=== PATIENT | female | born 1980 | race Caucasian/White ===

== ENCOUNTER 2016-11-23 08:40 | Outpatient (CLI) | payer OTHER ==
[2016-11-23 08:55] VITALS: BP 109/67
[2016-11-23] MEDS ORDERED: PREN1TAB86 PO (08:56)
[2016-11-23] MEDS ORDERED: FOLI0.4T2 PO (08:56)
[2016-11-23] MEDS ORDERED: GLYC1SUP77 RC (08:56)
[2016-11-23 09:15] VITALS: BP 113/74
[2016-11-23 09:17] VITALS: BP 112/66
--- NOTE | 2016-11-26 11:43 | Physician Query-Final Dx ---
WES KRISHNA 11/26/16 1143: Clinic Account Progress/Dx Physician Query: Please give diagnosis Date of Service Nov 23, 2016 at 08:40 SABRA SPRINGER MD 11/29/16 0912: Clinic Account Progress/Dx DIAGNOSIS: Diagnosis decreased movement WES KRISHNA Nov 26, 2016 11:43 SABRA SPRINGER MD Nov 29, 2016 09:12
== END 2016-11-23 09:40 | disposition home or self-care (01) ==
LOC: WSo 08:40 → LDRP 08:40 → UNDOADMOB 08:40 → LDRP 08:40 → UNDODISOB 09:40 → WSo 09:40 → EDSTATUS 11-24 14:30
PROVIDERS: ATTEND Obstetrics & Gynecology
DX: O36.8120 Decreased fetal movements, second trimester, not applicable or unspecified (principal); Z3A.25 25 weeks gestation of pregnancy
CPT/HCPCS: 99212

== ENCOUNTER 2017-01-29 14:28 | Outpatient (CLI) | payer OTHER ==
[~2017-01-29] VITALS: Ht 162.6 cm; Wt 103.1 kg
[~2017-01-29 14:28] MED LIST: FOLI0.4T2 PO; GLYC1SUP77 RC; PREN1TAB86 PO
[2017-01-29 14:53] VITALS: BP 123/61
[2017-01-29 20:01] VITALS: BP 118/61
--- NOTE | 2017-01-31 14:12 | Physician Query-Final Dx ---
WES KRISHNA 01/31/17 1412: Clinic Account Progress/Dx Physician Query: Please give diagnosis Date of Service Jan 29, 2017 at 14:28 SABAR SPRINGER MD 02/01/17 0745: Clinic Account Progress/Dx DIAGNOSIS: Diagnosis fecal impaction WES KRISHNA Jan 31, 2017 14:12 SABRA SPRINGER MD Feb 01, 2017 07:45
== END 2017-01-29 15:25 | disposition home or self-care (01) ==
LOC: WSo 14:28 → LDRP 14:29 → WSo 15:25
PROVIDERS: ATTEND Obstetrics & Gynecology
DX: O99.613 Diseases of the digestive system complicating pregnancy, third trimester (principal); K56.41 Fecal impaction; Z3A.34 34 weeks gestation of pregnancy
CPT/HCPCS: 99214

== ENCOUNTER 2017-01-29 19:39 | Outpatient (CLI) | payer OTHER ==
[2017-01-29 20:55] VITALS: BP 116/66
--- NOTE | 2017-02-01 09:49 | Physician Query-Final Dx ---
WES KRISHNA 02/01/17 0949: Clinic Account Progress/Dx Physician Query: Please give diagnosis Date of Service Jan 29, 2017 at 19:39 SABRA SPRINGER MD 02/02/17 0719: Clinic Account Progress/Dx DIAGNOSIS: Diagnosis fecal impaction / constipation WES KRISHNA Feb 01, 2017 09:49 SABRA SPRINGER MD Feb 02, 2017 07:19
[2017-03-04] MEDS ORDERED: OXYC-465 PO (12:27)
[2017-03-04] MEDS ORDERED: DOCU100C37 PO (12:27)
[2017-03-04] MEDS ORDERED: IBUP-1780 PO (12:27)
== END 2017-01-29 22:45 | disposition home or self-care (01) ==
LOC: WSo 19:39 → LDRP 19:39 → WSo 19:40 → LDRP 20:30 → WSo 20:30 → LDRP 20:40 → 4TH 20:40 → UNDOADMOB 20:40 → WSo 20:40 → 4TH 20:40 → UNDODISOB 22:45 → WSo 22:45
PROVIDERS: ATTEND Obstetrics & Gynecology
DX: O99.613 Diseases of the digestive system complicating pregnancy, third trimester (principal); K56.41 Fecal impaction; Z3A.34 34 weeks gestation of pregnancy
CPT/HCPCS: 99212

== ENCOUNTER 2017-02-16 13:30 | Outpatient (CLI) | payer OTHER ==
[~2017-02-16] VITALS: Ht 162.6 cm; Wt 104.3 kg
--- NOTE | 2017-02-17 08:56 | Physician Query-Final Dx ---
WES KRISHNA 02/17/17 0856: Clinic Account Progress/Dx Physician Query: Please give diagnosis Date of Service Feb 16, 2017 at 13:30 SABRA SPRINGER MD 02/17/17 1817: Clinic Account Progress/Dx DIAGNOSIS: Diagnosis false labor WES KRISHNA Feb 17, 2017 08:56 SABRA SPRINGER MD Feb 17, 2017 18:17
== END 2017-02-16 14:40 | disposition home or self-care (01) ==
LOC: LDRP 13:30 → WSo 13:30
PROVIDERS: ATTEND Obstetrics & Gynecology
DX: O47.9 False labor, unspecified (principal)
CPT/HCPCS: 99212

== ENCOUNTER 2017-03-03 01:23 | Inpatient (IN) | payer OTHER ==
[~2017-03-03] VITALS: Ht 162.6 cm; Wt 105.5 kg
[2017-03-03] VITALS (72 sets, daily range): BP systolic 91–223; BP diastolic 47–176
[2017-03-03] MEDS ORDERED: AMPICILLIN INJECTION 2,000 MG in NS (IVPB) 50 ML IV SCH (02:02)
[2017-03-03] MEDS ORDERED: AMPICILLIN 2000 MG INJECTION (IM/IV) ONE (02:09)
[2017-03-03] MEDS ORDERED: NS (IVPB) 50 ML ONE (02:10)
[2017-03-03] MEDS: D5 LR IV SOLUTION 1,000 ML IV SCH ×2 (02:23→10:21)
[2017-03-03 02:26] LABS: BASOPHILS % (AUTO) 0 % (0-10); EOSINOPHILS # (AUTO) 0.1 10^3/uL (0.0-0.3); EOSINOPHILS % (AUTO) 1 % (0-10); LYMPHOCYTES # (AUTO) 2.6 X 10^3 (1.0-4.0); LYMPHOCYTES % (AUTO) 28 % (12-44); MEAN CORPUSCULAR HEMOGLOBIN 30 PG (25-34); MEAN CORPUSCULAR HGB CONC 34 G/DL (32-36); MEAN CORPUSCULAR VOLUME 88 FL (80-99); MEAN PLATELET VOLUME 10.6 FL (7.4-10.4); MONOCYTES # (AUTO) 0.5 X 10^3 (0.0-1.0); MONOCYTES % (AUTO) 6 % (0-12); NEUTROPHILS # (AUTO) 5.8 X 10^3 (1.8-7.8); NEUTROPHILS % (AUTO) 65 % (42-75); PLATELET COUNT 240 10^3/uL (130-400); RED BLOOD COUNT 4.29 10^6/uL (4.35-5.85); WHITE BLOOD COUNT 9.1 10^3/uL (4.3-11.0)
[2017-03-03] MEDS ORDERED: CALCIUM CARBONATE 500 MG (TUMS) TAB.CHEW ONE (05:32)
[2017-03-03] MEDS ORDERED: CALCIUM CARBONATE 500 MG (TUMS) TAB.CHEW PO ONE (05:45)
[2017-03-03] MEDS ORDERED: CATHETER FLUSH 10 ML SYR IV SCH (06:00)
[2017-03-03] MEDS ORDERED: CITRIC ACID/SOB CIT (BICITRA) 30 ML UDC PO ONE (06:15)
[2017-03-03] MEDS: AMPICILLIN INJECTION 1,000 MG in NS (IVPB) 50 ML IV SCH ×4 (06:34→18:54)
[2017-03-03] MEDS ORDERED: OXYTOCIN/NORMAL SALINE 500 ML IV SCH ×2 (07:28→21:04)
[2017-03-03] MEDS ORDERED: INFLUENZA TRIvalent 2017-2018 0.5 ML/45 MCG SYR IM ONE (07:30)
[2017-03-03] MEDS ORDERED: CITRIC ACID/SOB CIT (BICITRA) 30 ML UDC PO PRN (07:30)
--- NOTE | 2017-03-03 07:39 | History & Physical ---
History and Physical Date Seen by Provider: Mar 03, 2017 Time Seen by Provider: 07:32 this patient is a 31-year-old G1 [place] female with an EDC of [id number] putting her past 39 weeks on presentation. She reports a large gush of clear fluid and was leaking continuously clear fluid on presentation. She complained of spontaneous rupture membranes at 1 a.m. Her has been uncomplicated. She did have a GBS positive culture after 35 weeks gestation. She denies bleeding. She does feel baby moving. She is having somewhat irregular contractions on presentation, contractions now have spaced out to 6 or 8/hour. patient did develop fairly significant pubic/pelvic pain that resolved with initially voiding. Allergies are none medications are Unisom and B6 vitamins and Anusol Past medical history, past surgical history, family history, and social histories are per the antepartum record HEENT exam is normal Neck is supple no lymphadenopathy no thyromegaly Abdomen is gravid soft nontender nondistended Extremities show clubbing cyanosis. There is no Homans sign. Exam per the L&D nurse shows a cervix is fingertip thick and somewhat anterior currently. The presenting part is the vertex. There is obvious clear fluid leakage monitor shows a normal heart rate pattern with occasional contractions there are frequent accelerations and no decelerations Laboratory Tests 03/03/17 02:15 assessment and plan term at 39+ weeks' gestation with PROM. The patient has requested an epidural. That will be placed and then the labor will be augmented with Pitocin. Patient's GBS culture was positive and she has been started on ampicillin and we'll continue until she delivers. Patient understands there is some potential for delivery.expectation is for vaginal delivery. 39 weeks gestation with PROM Allergies and Home Medications Allergies Coded Allergies: No Known Drug Allergies (Unverified , 03/03/17) Home Medications Folic Acid 0.4 Mg Tablet, MG PO DAILY, (Reported) Vit W-Ca,Fe,FA(<1 mg) 1 Each Tablet, 1 TAB PO DAILY, (Reported) Clinical Quality Measures DVT/VTE Risk/Contraindication: Risk Factor Score Per Nursin RFS Level Per Nursing on Admit: 1=Low/No VTE PPX SABRA SPRINGER MD Mar 03, 2017 7:39 am
[2017-03-03] MEDS ORDERED: SUFENTA 0.6MCG/ML BUPIVA 0.125 100 ML ONE (07:44)
[2017-03-03] MEDS: FAMOTIDINE 20MG/2ML IV (PEPCID) IVP SCH ×2 (07:45→21:00)
[2017-03-03] MEDS ORDERED: BUPIVACAINE 0.25% 30 ML (SENSORCAINE) VIAL ONE ×2 (08:05→20:55)
[2017-03-03] MEDS: EPIDURAL (SUFENTA 0.6MCG/ML BUPIVA 0.125%) 100 ML BAG EPI SCH ×2 (08:50→18:58)
[2017-03-03] MEDS ORDERED: LACTATED RINGERS 1,000 ML IV ONE (08:55)
[2017-03-03] MEDS ORDERED: NALOXONE 0.4 MG/ML 1 ML (NARCAN) VIAL IV PRN (09:00)
[2017-03-03] MEDS: ONDANSETRON 4 MG/2 ML (SDV) Z0FRAN IV PRN ×2 (09:22→14:40)
[2017-03-03] MEDS ORDERED: ACETAMINOPHEN 500 MG TAB (TYLENOL) ONE (17:44)
[2017-03-03] MEDS ORDERED: ACETAMINOPHEN 500 MG TAB (TYLENOL) PO PRN (18:00)
[2017-03-03] MEDS ORDERED: ceFAZolin 2 GM/50 ML NS 50 ML ONE (19:38)
[2017-03-03] MEDS ORDERED: metroNIDAZOLE 500MG/100ML IVPB 100 ML ONE (19:38)
[2017-03-03] MEDS ORDERED: METOCLOPRAMIDE INJ 10 MG/2 ML (REGLAN) ONE (19:38)
[2017-03-03] MEDS ORDERED: LIDOCAINE PF 2% 5 ML (XYLOCAINE) VIAL ONE (20:55)
[2017-03-03] MEDS ORDERED: fentaNYL INJECTION 100 MCG/2 ML AMP ONE (21:00)
--- NOTE | 2017-03-03 21:08 | Progress Note-Post Operative ---
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 Pre-Operative Diagnosis failure to progress in labor Post-Operative Diagnosis same with CPD Procedure & Operative Findings Date of Procedure 03/03/17 Procedure Performed/Findings primary low transverse delivery Anesthesia Type epidural Estimated Blood Loss Estimated blood loss (mL): 250cc Specimens/Packing Specimens Removed placenta and umbilical cord Packing: none SABRA SPRINGER MD Mar 03, 2017 21:08
--- NOTE | 2017-03-03 21:09 | Progress Note-Pre Operative ---
Pre-Operative Progress Note H&P Reviewed The H&P was reviewed, patient examined and no changes noted. Date Seen by Provider: Mar 03, 2017 Time Seen by Provider: 21:08 Date H&P Reviewed: Mar 03, 2017 Time H&P Reviewed: 21:08 Pre-Operative Diagnosis: term in labor with failure to progress and prolonged ROM SABRA SPRINGER MD Mar 03, 2017 21:09
[2017-03-03] MEDS ORDERED: D5 LR IV SOLUTION 1,000 ML IV ONE (21:12)
[2017-03-03] MEDS ORDERED: PROMETHAZINE INJ 25 MG/ML (PHENERGAN) AMP IM PRN (21:15)
[2017-03-03] MEDS ORDERED: MEPERIDINE (DEMEROL) INJ 100 MG/ML IM PRN (21:15)
[2017-03-03] MEDS ORDERED: TETANUS,DIPTH,PERTUSS P/F (BOOSTRIX) 0.5 ML VIAL IM ONE (21:15)
[2017-03-03] MEDS ORDERED: ceFAZolin INJECTION 2,000 MG in NS (IVPB) 50 ML IV ONE (21:15)
[2017-03-03] MEDS ORDERED: MEASLES,MUMPS,RUBELLA 1 EA INJ SC ONE (21:15)
[2017-03-03] MEDS ORDERED: metroNIDAZOLE 500MG/100ML IVPB 100 ML IV ONE (21:15)
[2017-03-03] MEDS ORDERED: morphine INJ 10 MG/ML 1ML (SYR OR VIAL) IVP PRN (22:00)
[2017-03-03] MEDS ORDERED: ONDANSETRON 4 MG/2 ML (SDV) Z0FRAN IVP PRN (22:00)
[2017-03-03] MEDS ORDERED: MEPERIDINE (DEMEROL) INJ 50 MG/ML IVP PRN (22:00)
[2017-03-04] MEDS: oxyCODONE/APAP 10/325MG (PERCOCET 10) TABLET PO PRN ×4 (00:43→20:52)
[2017-03-04] MEDS ORDERED: KETOROLAC 30 MG/ML VIAL ONE (04:28)
[2017-03-04] MEDS: KETOROLAC 30 MG/ML VIAL IVP SCH ×2 (04:40→10:59)
[2017-03-04 04:45] VITALS: BP 109/66
--- NOTE | 2017-03-04 06:55 | Progress Note-Standard ---
Standard Progress Note Progress Notes/Assess & Plan Date Seen by Provider: Mar 04, 2017 Time Seen by Provider: 06:54 Progress/Assessment & Plan this patient is without complaint. She is ambulating, voiding, tolerating by mouth, has good pain control. Patient denies chest pain, denies shortness of breath, denies nausea vomiting, patient denies headache as well. Vital Signs Date Time Temp Pulse Resp B/P (MAP) Pulse Ox O2 Delivery O2 Flow Rate FiO2 03/04/17 04:45 99.1 79 18 109/66 97 03/04/17 00:15 Room Air 03/03/17 23:30 98.2 69 18 117/69 97 03/03/17 21:20 62 18 105/53 03/03/17 21:00 18 03/03/17 20:45 62 18 123/68 03/03/17 20:30 64 18 114/58 03/03/17 20:15 63 18 111/56 03/03/17 20:00 97.8 65 18 105/52 03/03/17 19:45 65 18 96/52 03/03/17 19:30 67 18 110/51 03/03/17 19:15 65 18 117/49 03/03/17 17:05 79 20 118/53 Room Air 03/03/17 16:50 67 20 106/53 Room Air 03/03/17 16:35 67 20 113/54 Room Air 03/03/17 16:20 67 20 100/49 Room Air 03/03/17 16:05 64 20 98/47 Room Air 03/03/17 15:50 62 20 100/49 Room Air 03/03/17 15:35 62 20 94/49 Room Air 03/03/17 15:20 61 20 95/54 Room Air 03/03/17 15:05 98.6 73 20 112/67 Room Air 03/03/17 14:50 74 20 117/55 Room Air 03/03/17 14:34 69 20 123/58 Room Air 03/03/17 14:20 67 20 105/56 Room Air 03/03/17 14:05 61 20 110/55 Room Air 03/03/17 13:49 63 20 105/57 Room Air 03/03/17 13:35 60 20 102/53 Room Air 03/03/17 13:05 62 20 107/57 Room Air 03/03/17 12:50 62 20 107/52 Room Air 03/03/17 12:35 98.8 55 20 95/50 Room Air 03/03/17 12:20 53 20 110/53 Room Air 03/03/17 12:04 59 20 105/52 Room Air 03/03/17 11:49 55 20 95/55 Room Air 03/03/17 11:34 58 20 93/55 Room Air 03/03/17 11:25 59 20 103/51 Room Air 03/03/17 11:20 61 20 223/176 Room Air 03/03/17 10:49 63 20 101/54 Room Air 03/03/17 10:33 59 20 98/56 Room Air 03/03/17 10:22 62 20 102/53 Room Air 03/03/17 10:20 98.5 58 20 96/55 Room Air 03/03/17 10:01 58 20 96/55 Room Air 03/03/17 09:56 63 20 95/51 Room Air 03/03/17 09:54 62 20 97/51 Room Air 03/03/17 09:48 63 20 100/51 Room Air 03/03/17 09:41 73 20 101/48 100 Room Air 03/03/17 09:37 71 20 108/53 100 Room Air 03/03/17 09:33 71 20 112/50 100 Room Air 03/03/17 09:28 68 20 125/58 Room Air 03/03/17 09:24 75 20 117/57 99 Room Air 03/03/17 09:21 76 20 109/59 99 Room Air 03/03/17 09:17 78 20 121/58 99 Room Air 03/03/17 09:12 74 20 122/58 99 Room Air 03/03/17 09:07 80 20 119/57 99 Room Air 03/03/17 09:04 80 20 118/56 99 Room Air 03/03/17 08:59 84 20 115/57 99 Room Air 03/03/17 08:52 77 20 123/56 99 Room Air 03/03/17 08:47 81 20 128/89 100 Room Air 03/03/17 08:43 85 20 132/75 100 Room Air 03/03/17 08:37 97 20 153/80 99 Room Air 03/03/17 08:32 83 20 136/70 100 Room Air 03/03/17 08:27 85 20 138/63 100 Room Air 03/03/17 08:14 61 20 112/56 100 Room Air 03/03/17 07:58 96.9 65 20 111/52 Room Air vital signs are stable. Patient is afebrile. The abdomen is benign. The surgical incision is clean dry and intact. Fundus is firm below the umbilicus and nontender. Extremities show no clubbing or cyanosis. There is no Homans sign. There is some pretibial pitting edema that is normal. Assessment and plan postoperative day number 1 status post primary delivery due to failure to progress in labor/CPD. Patient doing well and will have routine convalescence care today SABRA SPRINGER MD Mar 04, 2017 6:55 am
[2017-03-04] MEDS: DOCUSATE SODIUM 100 MG (COLACE) CAP PO SCH (08:25)
[2017-03-04 09:00] VITALS: BP 117/66
--- NOTE | 2017-03-04 11:14 | OPERATIVE REPORT ---
DATE OF SERVICE: 03/03/2017 PREOPERATIVE DIAGNOSES: Term in labor with failure to progress. POSTOPERATIVE DIAGNOSES: Term in labor with failure to progress with CPD. OPERATIVE PROCEDURE: Primary low transverse delivery of a viable male with Apgars of 9 and 9 at 1 and 5 minutes respectively. Weight is 10 lbs. 3 oz. time was 2142. Cord blood pH was 7.41. OPERATIVE DESCRIPTION: With the patient in the supine position under satisfactory epidural anesthesia, she was prepped and draped in the usual fashion for abdominal surgery. Brooks catheter was placed in the urinary bladder during labor that was left to dependent drainage. A Pfannenstiel incision made through the skin with a scalpel. The patient's abdomen was entered in the usual manner. Bladder retractor placed in position, clean scalpel used to make a 4 cm hysterotomy incision transversally across the lower uterine segment that was extended by blunt dissection as well. A small amount of amniotic fluid was released on hysterotomy. Mcfarlane forceps were applied to facilitate delivery of a vigorous viable male and Apgars were 9 and 9 at 1 and 5 minutes respectively. The weight was pending at this time. time was 2142. Cord pH was 7.41. The infant was bulb suctioned on delivery of the head and nuchal cord was easily released and then the delivery completed in the usual manner atraumatically. The was bulb suctioned as the umbilical cord was doubly clamped and cut. was passed to Yue Syed, the pediatric nurse in attendance for delivery. Cord bloods were obtained. Placenta delivered spontaneously Kwon. It was normal with a 3-vessel cord. The uterus was exteriorized, the interior wiped clean with a wet laparotomy sponge. Uterine incision closed with a running lock suture of 2-0 Vicryl. Hemostasis was satisfactory. However, the uterus was quite boggy and atonic in spite of IV Pitocin. A modified B-Hunter suture was placed using 2-0 chromic sutures in the usual modified manner. This compressed the uterus nicely and blood loss was fairly minimal. The uterus was returned to the abdominal cavity. 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 There were 6 or 8 very obvious ones up to 2 to 3 cm in diameter. The abdominal cavity was examined, all blood clot and debris removed from the abdominal cavity. Sponge and needle counts correct and hemostasis assured at this point. The anterior parietal peritoneum was closed with a running suture of 2-0 Vicryl. The rectus muscles were closed with that suture as well. The rectus fascia was closed with 2-0 Vicryl, subcutaneous tissue with 2-0 Vicryl and the skin was stapled. Sponge and needle counts were correct on completion of the delivery and the closure. The estimated blood loss, anesthesia estimated at 250, my estimate would be more like 700. The patient tolerated the procedure well and was transferred to the recovery room in stable condition. The infant had been taken stable to the full term nursery under the care of nurse Oquendo. Job ID: [id number] DocumentID: [id number] Dictated Date: 03/03/2017 22:10:21 Pathologist Date: 03/03/2017 22:35:12 Dictated By: SABRA SPRINGER MD MTDD
[2017-03-04] MEDS ORDERED: DOCU100C37 PO (12:27)
[2017-03-04] MEDS ORDERED: IBUP-1780 PO (12:27)
[2017-03-04] MEDS ORDERED: OXYC-465 PO (12:27)
--- NOTE | 2017-03-04 12:29 | Discharge Instructions ---
Discharge Instructions Discharge Medications New, Converted or Re-Newed RX: RX on Chart Activity & Diet Discharge Diet: No Restrictions Activity as Tolerated: No Orders-Post D/C & Referrals Follow Up Appt: RTC 1 week for incision check. Call to make follow up appt. for patient in 4 weeks. Wound Care: Remove mathieu, apply benzoin and steri strips. Activity Per routine post instructions. Diet as tolerated Patient may shower or tub bathe as desired. Continue home meds SABRA SPRINGER MD Mar 04, 2017 12:29 pm
[2017-03-04 13:38] VITALS: BP 117/66
[2017-03-04 13:40] VITALS: BP 96/64
--- NOTE | 2017-03-04 14:54 | Anesthesia-Regional Post-Op ---
Regional Patient Condition Mental Status: Alert, Oriented x3 Circulation: Same as Pre-Op Headache: Absent Sensation: Full Recovery Motor Block: Absent Post Op Complications Complications None Follow Up Care/Instructions Patient Instructions None needed. Anesthesia/Patient Condition Patient is doing well, no complaints, stable vital signs, no apparent adverse anesthesia problems. No complications reported per nursing. [place] [facility] [place] NAYLA SANTIAGO CRNA Mar 04, 2017 14:54
[2017-03-04] MEDS: SIMETHICONE 80 MG (MYLICON) CHEW PO SCH (15:25)
[2017-03-04 18:03] VITALS: BP 101/64
[2017-03-04] MEDS: IBUPROFEN 800 MG (MOTRIN) TAB PO SCH (18:05)
[2017-03-05] VITALS: BP 105/75
[2017-03-05] MEDS: DOCUSATE SODIUM 100 MG (COLACE) CAP PO SCH ×3 (00:08→20:39)
[2017-03-05] MEDS: IBUPROFEN 800 MG (MOTRIN) TAB PO SCH ×5 (00:08→23:50)
[2017-03-05] MEDS: oxyCODONE/APAP 10/325MG (PERCOCET 10) TABLET PO PRN ×4 (02:29→20:39)
[2017-03-05] MEDS ORDERED: INFLUENZA TRIvalent 2017-2018 0.5 ML/45 MCG SYR IM ONE (08:21)
[2017-03-05] MEDS: KETOROLAC 30 MG/ML VIAL IVP SCH (08:21)
[2017-03-05] MEDS ORDERED: TETANUS,DIPTH,PERTUSS P/F (BOOSTRIX) 0.5 ML VIAL IM ONE (08:21)
--- NOTE | 2017-03-05 08:37 | Progress Note-Standard ---
Standard Progress Note Progress Notes/Assess & Plan Date Seen by Provider: Mar 05, 2017 Time Seen by Provider: 08:34 Progress/Assessment & Plan this patient is without complaint. She is ambulating, voiding, tolerating by mouth, has good pain control. Patient denies chest pain, denies shortness of breath, denies nausea vomiting, patient denies headache as well. Vital Signs Date Time Temp Pulse Resp B/P (MAP) Pulse Ox O2 Delivery O2 Flow Rate FiO2 03/04/17 04:45 99.1 79 18 109/66 97 03/04/17 00:15 Room Air 03/03/17 23:30 98.2 69 18 117/69 97 03/03/17 21:20 62 18 105/53 03/03/17 21:00 18 03/03/17 20:45 62 18 123/68 03/03/17 20:30 64 18 114/58 03/03/17 20:15 63 18 111/56 03/03/17 20:00 97.8 65 18 105/52 03/03/17 19:45 65 18 96/52 03/03/17 19:30 67 18 110/51 03/03/17 19:15 65 18 117/49 03/03/17 17:05 79 20 118/53 Room Air 03/03/17 16:50 67 20 106/53 Room Air 03/03/17 16:35 67 20 113/54 Room Air 03/03/17 16:20 67 20 100/49 Room Air 03/03/17 16:05 64 20 98/47 Room Air 03/03/17 15:50 62 20 100/49 Room Air 03/03/17 15:35 62 20 94/49 Room Air 03/03/17 15:20 61 20 95/54 Room Air 03/03/17 15:05 98.6 73 20 112/67 Room Air 03/03/17 14:50 74 20 117/55 Room Air 03/03/17 14:34 69 20 123/58 Room Air 03/03/17 14:20 67 20 105/56 Room Air 03/03/17 14:05 61 20 110/55 Room Air 03/03/17 13:49 63 20 105/57 Room Air 03/03/17 13:35 60 20 102/53 Room Air 03/03/17 13:05 62 20 107/57 Room Air 03/03/17 12:50 62 20 107/52 Room Air 03/03/17 12:35 98.8 55 20 95/50 Room Air 03/03/17 12:20 53 20 110/53 Room Air 03/03/17 12:04 59 20 105/52 Room Air 03/03/17 11:49 55 20 95/55 Room Air 03/03/17 11:34 58 20 93/55 Room Air 03/03/17 11:25 59 20 103/51 Room Air 03/03/17 11:20 61 20 223/176 Room Air 03/03/17 10:49 63 20 101/54 Room Air 03/03/17 10:33 59 20 98/56 Room Air 03/03/17 10:22 62 20 102/53 Room Air 03/03/17 10:20 98.5 58 20 96/55 Room Air 03/03/17 10:01 58 20 96/55 Room Air 03/03/17 09:56 63 20 95/51 Room Air 03/03/17 09:54 62 20 97/51 Room Air 03/03/17 09:48 63 20 100/51 Room Air 03/03/17 09:41 73 20 101/48 100 Room Air 03/03/17 09:37 71 20 108/53 100 Room Air 03/03/17 09:33 71 20 112/50 100 Room Air 03/03/17 09:28 68 20 125/58 Room Air 03/03/17 09:24 75 20 117/57 99 Room Air 03/03/17 09:21 76 20 109/59 99 Room Air 03/03/17 09:17 78 20 121/58 99 Room Air 03/03/17 09:12 74 20 122/58 99 Room Air 03/03/17 09:07 80 20 119/57 99 Room Air 03/03/17 09:04 80 20 118/56 99 Room Air 03/03/17 08:59 84 20 115/57 99 Room Air 03/03/17 08:52 77 20 123/56 99 Room Air 03/03/17 08:47 81 20 128/89 100 Room Air 03/03/17 08:43 85 20 132/75 100 Room Air 03/03/17 08:37 97 20 153/80 99 Room Air 03/03/17 08:32 83 20 136/70 100 Room Air 03/03/17 08:27 85 20 138/63 100 Room Air 03/03/17 08:14 61 20 112/56 100 Room Air 03/03/17 07:58 96.9 65 20 111/52 Room Air vital signs are stable. Patient is afebrile. The abdomen is benign. The surgical incision is clean dry and intact. Fundus is firm below the umbilicus and nontender. Extremities show no clubbing or cyanosis. There is no Homans sign. There is some pretibial pitting edema that is normal. Assessment and plan postoperative day number 1 status post primary delivery due to failure to progress in labor/CPD. Patient doing well and will have routine convalescence care today March 05, 2017 Patient is without complaint except for some abdominal distention due to gas. She does state that she passes gas occasionally. She denies nausea vomiting, denies headache, denies shortness of breath, she denies chest pain. Patient is ambulating and voiding and tolerating by mouth. Vital Signs Date Time Temp Pulse Resp B/P (MAP) Pulse Ox O2 Delivery O2 Flow Rate FiO2 03/05/17 00:00 98.5 66 18 105/75 99 Room Air 03/04/17 18:20 98.3 03/04/17 18:03 100.0 77 18 101/64 98 Room Air 03/04/17 13:40 98.7 74 18 96/64 96 Room Air 03/04/17 09:00 99.2 72 20 117/66 96 Room Air I & O 03/06/17 07:00 Intake Total 1000 ml Output Total 1200 ml Balance -200 ml Vital signs are stable. Patient is afebrile. The abdomen is benign. The surgical incision is clean dry and intact. the uterine fundus is firm nontender below the umbilicus. Extremities show no clubbing cyanosis. There is some pretibial pitting edema that is normal. There is no Homans sign. assessment and plan postoperative day number 2 status post primary delivery doing well. Patient has some abdominal discomfort likely due to her to her gas. We will start Reglan for bowel kinesis. Plan is to continue routine convalescence care until patient feels ready for discharge SABRA SPRINGER MD Mar 05, 2017 8:37 am
[2017-03-05] MEDS ORDERED: ONDANSETRON 8 MG (ZOFRAN) ORAL DISSOLVE TAB PO PRN (08:45)
[2017-03-05 09:06] VITALS: BP 96/58
[2017-03-05] MEDS: SIMETHICONE 80 MG (MYLICON) CHEW PO SCH ×4 (09:23→20:39)
[2017-03-05] MEDS: METOCLOPRAMIDE 10 MG (REGLAN) TAB PO PRN ×3 (09:23→20:39)
[2017-03-05 16:03] VITALS: BP 114/76
[2017-03-06] VITALS: BP 118/67
[2017-03-06 06:20] VITALS: BP 101/67
[2017-03-06] MEDS: IBUPROFEN 800 MG (MOTRIN) TAB PO SCH ×3 (06:20→18:51)
[2017-03-06 08:41] VITALS: BP 113/74
[2017-03-06] MEDS: SIMETHICONE 80 MG (MYLICON) CHEW PO SCH ×3 (08:41→20:37)
[2017-03-06] MEDS: METOCLOPRAMIDE 10 MG (REGLAN) TAB PO PRN ×2 (08:41→18:51)
[2017-03-06] MEDS: DOCUSATE SODIUM 100 MG (COLACE) CAP PO SCH ×2 (08:41→20:37)
--- NOTE | 2017-03-06 09:17 | Progress Note-Standard ---
Standard Progress Note Progress Notes/Assess & Plan Date Seen by Provider: Mar 06, 2017 Time Seen by Provider: 09:15 Progress/Assessment & Plan this patient is without complaint. She is ambulating, voiding, tolerating by mouth, has good pain control. Patient denies chest pain, denies shortness of breath, denies nausea vomiting, patient denies headache as well. Vital Signs Date Time Temp Pulse Resp B/P (MAP) Pulse Ox O2 Delivery O2 Flow Rate FiO2 03/04/17 04:45 99.1 79 18 109/66 97 03/04/17 00:15 Room Air 03/03/17 23:30 98.2 69 18 117/69 97 03/03/17 21:20 62 18 105/53 03/03/17 21:00 18 03/03/17 20:45 62 18 123/68 03/03/17 20:30 64 18 114/58 03/03/17 20:15 63 18 111/56 03/03/17 20:00 97.8 65 18 105/52 03/03/17 19:45 65 18 96/52 03/03/17 19:30 67 18 110/51 03/03/17 19:15 65 18 117/49 03/03/17 17:05 79 20 118/53 Room Air 03/03/17 16:50 67 20 106/53 Room Air 03/03/17 16:35 67 20 113/54 Room Air 03/03/17 16:20 67 20 100/49 Room Air 03/03/17 16:05 64 20 98/47 Room Air 03/03/17 15:50 62 20 100/49 Room Air 03/03/17 15:35 62 20 94/49 Room Air 03/03/17 15:20 61 20 95/54 Room Air 03/03/17 15:05 98.6 73 20 112/67 Room Air 03/03/17 14:50 74 20 117/55 Room Air 03/03/17 14:34 69 20 123/58 Room Air 03/03/17 14:20 67 20 105/56 Room Air 03/03/17 14:05 61 20 110/55 Room Air 03/03/17 13:49 63 20 105/57 Room Air 03/03/17 13:35 60 20 102/53 Room Air 03/03/17 13:05 62 20 107/57 Room Air 03/03/17 12:50 62 20 107/52 Room Air 03/03/17 12:35 98.8 55 20 95/50 Room Air 03/03/17 12:20 53 20 110/53 Room Air 03/03/17 12:04 59 20 105/52 Room Air 03/03/17 11:49 55 20 95/55 Room Air 03/03/17 11:34 58 20 93/55 Room Air 03/03/17 11:25 59 20 103/51 Room Air 03/03/17 11:20 61 20 223/176 Room Air 03/03/17 10:49 63 20 101/54 Room Air 03/03/17 10:33 59 20 98/56 Room Air 03/03/17 10:22 62 20 102/53 Room Air 03/03/17 10:20 98.5 58 20 96/55 Room Air 03/03/17 10:01 58 20 96/55 Room Air 03/03/17 09:56 63 20 95/51 Room Air 03/03/17 09:54 62 20 97/51 Room Air 03/03/17 09:48 63 20 100/51 Room Air 03/03/17 09:41 73 20 101/48 100 Room Air 03/03/17 09:37 71 20 108/53 100 Room Air 03/03/17 09:33 71 20 112/50 100 Room Air 03/03/17 09:28 68 20 125/58 Room Air 03/03/17 09:24 75 20 117/57 99 Room Air 03/03/17 09:21 76 20 109/59 99 Room Air 03/03/17 09:17 78 20 121/58 99 Room Air 03/03/17 09:12 74 20 122/58 99 Room Air 03/03/17 09:07 80 20 119/57 99 Room Air 03/03/17 09:04 80 20 118/56 99 Room Air 03/03/17 08:59 84 20 115/57 99 Room Air 03/03/17 08:52 77 20 123/56 99 Room Air 03/03/17 08:47 81 20 128/89 100 Room Air 03/03/17 08:43 85 20 132/75 100 Room Air 03/03/17 08:37 97 20 153/80 99 Room Air 03/03/17 08:32 83 20 136/70 100 Room Air 03/03/17 08:27 85 20 138/63 100 Room Air 03/03/17 08:14 61 20 112/56 100 Room Air 03/03/17 07:58 96.9 65 20 111/52 Room Air vital signs are stable. Patient is afebrile. The abdomen is benign. The surgical incision is clean dry and intact. Fundus is firm below the umbilicus and nontender. Extremities show no clubbing or cyanosis. There is no Homans sign. There is some pretibial pitting edema that is normal. Assessment and plan postoperative day number 1 status post primary delivery due to failure to progress in labor/CPD. Patient doing well and will have routine convalescence care today March 05, 2017 Patient is without complaint except for some abdominal distention due to gas. She does state that she passes gas occasionally. She denies nausea vomiting, denies headache, denies shortness of breath, she denies chest pain. Patient is ambulating and voiding and tolerating by mouth. Vital Signs Date Time Temp Pulse Resp B/P (MAP) Pulse Ox O2 Delivery O2 Flow Rate FiO2 03/05/17 00:00 98.5 66 18 105/75 99 Room Air 03/04/17 18:20 98.3 03/04/17 18:03 100.0 77 18 101/64 98 Room Air 03/04/17 13:40 98.7 74 18 96/64 96 Room Air 03/04/17 09:00 99.2 72 20 117/66 96 Room Air I & O 03/06/17 07:00 Intake Total 1000 ml Output Total 1200 ml Balance -200 ml Vital signs are stable. Patient is afebrile. The abdomen is benign. The surgical incision is clean dry and intact. the uterine fundus is firm nontender below the umbilicus. Extremities show no clubbing cyanosis. There is some pretibial pitting edema that is normal. There is no Homans sign. assessment and plan postoperative day number 2 status post primary delivery doing well. Patient has some abdominal discomfort likely due to her to her gas. We will start Reglan for bowel kinesis. Plan is to continue routine convalescence care until patient feels ready for discharge March 06, 2017 Patient is without complaint except for feeling of constipation. She is ambulating, voiding, tolerating by mouth, has adequate pain control.she has developed a slight rash over her lower abdomen in the area of the tape distribution from her post operative dressing. Vital Signs Date Time Temp Pulse Resp B/P (MAP) Pulse Ox O2 Delivery O2 Flow Rate FiO2 03/06/17 08:41 99.3 69 18 113/74 98 Room Air 03/06/17 06:20 98.1 65 18 101/67 96 Room Air 03/06/17 00:00 98.9 66 18 118/67 96 Room Air 03/05/17 16:03 98.3 71 18 114/76 96 Room Air vital signs are stable. Patient is afebrile. The abdomen is benign except for a rash across the lower abdomen. Extreme show no clubbing cyanosis there is no Homans sign. There is some pretibial pitting edema that is normal. Assessment and plan postoperative day number 3 status post term primary delivery. Patient has a history of constipation and is beginning to feel constipated we will start MiraLAX in addition to Reglan she currently is taking. She's developed a rash over the lower abdomen from the postoperative take wound dressing area we will start a topical steroid cream for that. Plan is for discharge home tomorrow SABRA SPRINGER MD Mar 06, 2017 9:17 am
[2017-03-06] MEDS: POLYETHYLENE GLYCOL 17 GM (MIRALAX) PACK PO SCH ×2 (09:35→20:37)
[2017-03-06] MEDS: HYDROCORTISONE 2.5% CREAM (ANUSOL-HC) 30 GM TOP SCH ×2 (09:35→20:37)
[2017-03-06 18:45] VITALS: BP 120/72
[2017-03-07 00:30] VITALS: BP 106/59
[2017-03-07] MEDS: IBUPROFEN 800 MG (MOTRIN) TAB PO SCH ×2 (00:33→05:45)
--- NOTE | 2017-03-07 07:25 | Discharge Summary ---
Discharge Summary term primary delivery this patient is a 31-year-old [place] female who presented with spontaneous rupture membranes in the early hours of March 03, 2017. She labored through the day was augmented with Pitocin and dilated to about 5 cm and stalled there. She was eventually taken for primary delivery due to failure to progress. The operative diagnoses included market CPD. The patient's was uncomplicated patient recovered uneventfully. On Tuesday, 04 March the patient was without complaint. He did ambulate some through the day. He had adequate pain control and received routine convalescence care. On Tuesday the and Tuesday the the patient was essentially unchanged. She did ambulate better pain control was better she complained of some constipation that resolved with MiraLAX and Reglan. Again she had routine care for both of these days. Now on March 07, 2017 patient postoperative day number 4 status post her primary delivery she is doing well and feels ready for discharge home. Principal diagnoses this hospitalization is term delivery at 39+ weeks ' gestation. Secondary diagnoses are. failure to Progress in labor/CPD/spontaneous rupture membranes operation procedures include monitoring IV antibiotics Pitocin augmentation of labor epidural analgesia and primary delivery Discharge medications are Percocet and Motrin and Colace patient is continue her own vitamins Patient is given appropriate discharge instructions verbally and in writing and a copy those are placed in the chart. Clinical Quality Measures DVT/VTE Risk/Contraindication: Risk Factor Score Per Nursin RFS Level Per Nursing on Admit: 1=Low/No VTE PPX SABRA SPRINGER MD Mar 07, 2017 7:25 am
[2017-03-07 09:20] VITALS: BP 109/71
[2017-03-07] MEDS: SIMETHICONE 80 MG (MYLICON) CHEW PO SCH (09:20)
[2017-03-07] MEDS: DOCUSATE SODIUM 100 MG (COLACE) CAP PO SCH (09:20)
== END 2017-03-07 11:00 | disposition home or self-care (01) | DRG 766 ==
LOC: WSo 01:23 → LDRP 01:24 → WSo 02:01 → LDRP 02:01
PROVIDERS: ADMIT Obstetrics & Gynecology; ATTEND Obstetrics & Gynecology
PROC: 10D00Z1 Extraction of Products of Conception, Low, Open Approach (ICD-10-PCS; principal; 2017-03-03 21:27)
DX: O99.824 Streptococcus B carrier state complicating childbirth (principal); O62.2 Other uterine inertia; O66.40 Failed trial of labor, unspecified; R21 Rash and other nonspecific skin eruption; K59.00 Constipation, unspecified; Z3A.39 39 weeks gestation of pregnancy; Z37.0 Single live birth; Z23 Encounter for immunization
CPT/HCPCS: 36415; 85025; 86850; 86900; 86901; 90715; 94664; 99212

== ENCOUNTER 2017-03-30 05:36 | Outpatient (CLI) | payer OTHER ==
[~2017-03-30] VITALS: Ht 162.6 cm; Wt 91.6 kg
[~2017-03-30 05:36] MED LIST changes: +DOCU100C37 PO; +IBUP-1780 PO; +OXYC-465 PO
[2017-03-30] MEDS ORDERED: IBUP-1780 PO (11:36)
[2017-03-30] MEDS ORDERED: DOCU100T2 PO (11:36)
== END 2017-03-30 11:37 ==
LOC: PREOP 05:36
PROVIDERS: ATTEND Surgery
DX: Z01.818 Encounter for other preprocedural examination (principal); K62.5 Hemorrhage of anus and rectum; K62.89 Other specified diseases of anus and rectum

== ENCOUNTER 2017-04-01 09:39 | Day surgery (SDC) | payer OTHER ==
[~2017-04-01] VITALS: Ht 162.6 cm; Wt 91.6 kg
[~2017-04-01 09:39] MED LIST changes: +DOCU100T2 PO
[2017-04-01] MEDS ORDERED: ceFAZolin 2 GM/NS 50 ML IV ONE (10:15)
[2017-04-01] MEDS ORDERED: LACTATED RINGERS 1,000 ML IV PRN (10:20)
[2017-04-01] MEDS ORDERED: LIDOCAINE PF 2% 5 ML (XYLOCAINE) VIAL ONE (10:23)
[2017-04-01] MEDS ORDERED: fentaNYL INJECTION 100 MCG/2 ML AMP ONE (10:23)
[2017-04-01] MEDS ORDERED: DEXAMETHASONE 10 MG/ML (DECADRON) 1 ML VIAL ONE (10:23)
[2017-04-01] MEDS ORDERED: ONDANSETRON 4 MG/2 ML (SDV) Z0FRAN ONE (10:23)
[2017-04-01] MEDS ORDERED: proPOfol 200 MG/20 ML (DIPRIVAN) VIAL IV ONE (10:23)
[2017-04-01] MEDS ORDERED: MIDAZOLAM 2 MG/2 ML (VERSED) VIAL ONE (10:23)
--- NOTE | 2017-04-01 10:23 | Progress Note-Pre Operative ---
Pre-Operative Progress Note H&P Reviewed The H&P was reviewed, patient examined and no changes noted. Date Seen by Provider: Mar 30, 2017 Time Seen by Provider: 15:55 Date H&P Reviewed: Apr 01, 2017 Time H&P Reviewed: 10:23 Pre-Operative Diagnosis: Rectal pain and bleeding LIZZY JERRY MD Apr 01, 2017 10:23 am
[2017-04-01 10:28] VITALS: BP 107/76
[2017-04-01] MEDS ORDERED: ROCURONIUM 50 MG/5 ML (ZEMURON) VIAL IV ONE (10:30)
[2017-04-01] MEDS ORDERED: BUP/EPI 0.5% 1:200,000 (MARCAINE) 10ML VIAL IJ ONE (10:50)
[2017-04-01] MEDS ORDERED: SUCCINYLCHOLINE INJ 100 MG/5 ML SYR ONE (10:58)
--- NOTE | 2017-04-01 11:15 | Operative Report ---
Operative Report Date of Procedure/Surgery Apr 01, 2017 Surgeon (s) LIZZY JERRY MD Flux Mixer (s): N/A Post-Operative Diagnosis 1.chronic posterior anal fissure 2. Acute anterior anal fissure 3. Anal skin tags Procedure Performed 1.examination under anesthetic 2. Flexible sigmoidoscopy 3. Submucosal injection of local anesthetic 4. Gentle anal dilatation Description of Procedure Anesthesia Type: General Estimated blood loss (mL): none Specimen(s) collected/removed none Description of the Procedure Indication for the procedure: This lady presented with severe perianal pain and intermittent streaky rectal bleeding over the past several weeks. In addition, she was also constipated. She was offered an examination under anesthetic to establish a definitive diagnosis; should a fissure be confirmed, submucosal injection of local anesthetic to relieve spasm of the internal sphincter and to as an attempt at healing of the fissure was discussed. Flexible sigmoidoscopy was also arranged to rule out other sources of rectal bleeding. Informed consent was obtained after reviewing the procedure in detail. Description of the procedure: She underwent mechanical bowel preparation the day before the procedure. She was initially placed supine on the operative table and general anesthesia induced. 2 g of Ancef were administered intravenously as prophylaxis. Subsequently, she was placed in combined lithotomy position, her legs being supported on stirrups. 1. Examination under anesthetic: A chronic posterior anal fissure and an acute anterior fissure where encountered. A few skin tags were also found. 2. Flexible sigmoidoscopy: The flexible scope was introduced into the rectum and advanced to the proximal sigmoid colon. It was then withdrawn slowly and the mucosa examined in a systematic fashion. Apart from the fissure described above, there was no other abnormality 3. Submucosal injection of local anesthetic: 0.5percent Marcaine with epinephrine was infiltrated into the submucosal plane both anteriorly and posteriorly, in anticipation of relieving the spasm of the internal sphincter. The anal orifice was gently dilated to promote her recovery. She tolerated the procedure well, was extubated in the operative room and taken to the recovery room in a stable condition. Findings of the Procedure See op report Allergies and Home Medications Allergies Coded Allergies: No Known Drug Allergies (Unverified , 03/03/17) Home Medications Docusate Sodium 100 Mg Tablet, 100 MG PO BID, (Reported) Ibuprofen 800 Mg Tablet, 800 MG PO Q6H PRN for PAIN, (Reported) Vit W-Ca,Fe,FA(<1 mg) 1 Each Tablet, 1 TAB PO DAILY, (Reported) Copy Copies To 1: SABRA SPRINGER MD,LIZZY Linn MD Apr 01, 2017 11:15 am
--- NOTE | 2017-04-01 11:17 | Discharge Inst-Simple/Standard ---
Discharge Inst-Standard Discharge Medications New, Converted or Re-Newed RX: Other Patient Instructions/Follow Up Plan of Care/Instructions/FU: please call for 0.2 % nitroglycerin paste to the perianal region, to be applied twice a day for a week, to her pharmacy. Stool softeners on a regular basis. Follow-up with me in a month Activity as Tolerated: Yes Discharge Diet: No Restrictions LIZZY JERRY MD Apr 01, 2017 11:17 am
[2017-04-01] MEDS ORDERED: ONDANSETRON 4 MG/2 ML (SDV) Z0FRAN IVP PRN (11:30)
[2017-04-01] MEDS ORDERED: morphine INJ 10 MG/ML 1ML (SYR OR VIAL) IVP PRN (11:30)
[2017-04-01] MEDS ORDERED: PROMETHAZINE INJ 25 MG/ML (PHENERGAN) AMP IVP PRN (11:30)
[2017-04-01 12:37] VITALS: BP 111/71
[2017-04-01 12:55] VITALS: BP 108/65
== END 2017-04-01 13:24 | disposition home or self-care (01) ==
LOC: SDC 09:39
PROVIDERS: ATTEND Surgery
DX: K60.2 Anal fissure, unspecified (principal); K64.4 Residual hemorrhoidal skin tags; K59.00 Constipation, unspecified
CPT/HCPCS: 84703; 87081